=== PATIENT | male | born 1985 | race Caucasian/White ===

== ENCOUNTER 2020-10-06 06:58 | Emergency (ER) | payer OTHER ==
[~2020-10-06] VITALS: Ht 185.4 cm; Wt 74.4 kg
[2020-10-06 07:05] VITALS: Ht 185.4 cm; Wt 74.4 kg
[2020-10-06 07:53] VITALS: BP 107/62
== END 2020-10-06 07:53 | disposition home or self-care (01) ==
LOC: ED 06:58
DX: H66.91 Otitis media, unspecified, right ear (principal); Z98.890 Other specified postprocedural states